=== PATIENT | male | born 1955 | race Two or more races ===

== ENCOUNTER 2017-04-23 11:47 | Outpatient (CLI) | payer OTHER | END 2017-04-23 12:58 | disposition home or self-care (01) | LOC: RAD 501 11:47 | DX: M54.5 Low back pain (principal) ==

== ENCOUNTER 2017-08-14 11:48 | Outpatient (CLI) | payer OTHER | END 2017-08-14 16:16 | disposition home or self-care (01) | LOC: RAD 501 11:48 | DX: M17.11 Unilateral primary osteoarthritis, right knee (principal); M17.12 Unilateral primary osteoarthritis, left knee ==

== ENCOUNTER → 2022-05-09 16:42 | Outpatient (CLI) | payer OTHER | END | disposition home or self-care (01) | LOC: LAB 16:42 → RAD 16:42 | PROVIDERS: ATTEND Orthopaedic Surgery | DX: M25.561 Pain in right knee (principal); M25.562 Pain in left knee ==

== ENCOUNTER 2022-07-20 16:20 | Outpatient (CLI) | payer OTHER | END 2022-07-20 16:27 | disposition home or self-care (01) | LOC: RAD 16:20 | PROVIDERS: ATTEND Orthopaedic Surgery | DX: R07.9 Chest pain, unspecified (principal) ==

== ENCOUNTER 2022-07-26 11:03 | Inpatient (IN) | payer OTHER ==
[~2022-07-26] VITALS: Ht 167.6 cm; Wt 82.6 kg
[2022-08-02] MEDS ORDERED: GABAPENTIN100 MG PO (12:57)
[2022-08-02] MEDS ORDERED: NORFLEX100MG PO (12:57)
[2022-08-02] MEDS ORDERED: OXYC1TAB9 PO (12:57)
[2022-08-02] MEDS ORDERED: LORAZEPAM0.5 MG PO (12:58)
[2022-08-02] MEDS ORDERED: XARELTO10 MG PO (13:02)
== END 2022-08-02 16:00 | DRG 470 ==
LOC: O/R 07-31 06:54 → SURH 07-31 06:54 → SURG 07-31 16:10 → SURH 07-31 19:59
PROVIDERS: ADMIT Orthopaedic Surgery; ATTEND Orthopaedic Surgery
PROC: 0SRC0JZ Replacement of Right Knee Joint with Synthetic Substitute, Open Approach (ICD-10-PCS; principal; 2022-07-31 12:15)
DX: M17.11 Unilateral primary osteoarthritis, right knee (principal); D62 Acute posthemorrhagic anemia; M85.661 Other cyst of bone, right lower leg; R26.89 Other abnormalities of gait and mobility

== ENCOUNTER 2023-11-05 05:46 | Day surgery (SDC) | payer OTHER ==
[~2023-11-05 05:46] MED LIST: GABAPENTIN100 MG PO; LORAZEPAM0.5 MG PO; NORFLEX100MG PO; OXYC1TAB9 PO; XARELTO10 MG PO
[2023-11-05] MEDS ORDERED: MIDAZOLAM HCL 2 MG/2 ML VIAL IV ONE (09:00)
[2023-11-05] MEDS ORDERED: DIPHENHYDRAMINE HCL 50 MG/ML VIAL 1ML IV ONE (09:00)
[2023-11-05] MEDS ORDERED: fentaNYL CITRATE 50 MCG/ML AMPUL IV PUSH ONE (09:00)
== END 2023-11-05 10:30 | disposition home or self-care (01) ==
LOC: AMB-ENDOS 05:46 → EDBD 14:45
PROVIDERS: ATTEND Colon & Rectal Surgery
DX: D12.3 Benign neoplasm of transverse colon (principal); D12.4 Benign neoplasm of descending colon; K63.5 Polyp of colon

== ENCOUNTER 2024-01-01 07:42 | Outpatient (CLI) | payer OTHER | END 2024-01-01 07:54 | disposition home or self-care (01) | LOC: TOM 07:42 | DX: I26.99 Other pulmonary embolism without acute cor pulmonale (principal); R06.00 Dyspnea, unspecified | CPT/HCPCS: 71275; Q9965 ==

== ENCOUNTER 2024-04-16 12:38 | Outpatient (CLI) | payer OTHER | END 2024-04-16 12:42 | disposition home or self-care (01) | LOC: RAD 12:38 | PROVIDERS: ATTEND Ophthalmology | DX: Z01.811 Encounter for preprocedural respiratory examination (principal) ==

== ENCOUNTER 2024-05-15 14:35 | Outpatient (CLI) | payer OTHER | END 2024-05-15 14:36 | disposition home or self-care (01) | LOC: RAD 14:35 | DX: M17.11 Unilateral primary osteoarthritis, right knee (principal); Z96.651 Presence of right artificial knee joint ==

== ENCOUNTER 2024-05-21 12:34 | Outpatient (CLI) | payer OTHER | END 2024-05-21 12:39 | disposition home or self-care (01) | LOC: RAD 12:34 | PROVIDERS: ATTEND Orthopaedic Surgery Sports Medicine | DX: M19.012 Primary osteoarthritis, left shoulder (principal) | CPT/HCPCS: 73218 ==

== ENCOUNTER 2024-07-09 07:10 | Outpatient (CLI) | payer OTHER | END 2024-07-09 07:11 | disposition home or self-care (01) | LOC: NUCLEAR 07:10 | DX: T84.84XA Pain due to internal orthopedic prosthetic devices, implants and grafts, initial encounter (principal) | CPT/HCPCS: 78315; A9503 ==

== ENCOUNTER 2024-10-13 13:25 | Outpatient (CLI) | payer OTHER | END 2024-10-13 13:30 | disposition home or self-care (01) | LOC: RAD 13:25 | DX: I11.9 Hypertensive heart disease without heart failure (principal); M17.11 Unilateral primary osteoarthritis, right knee ==

== ENCOUNTER 2024-11-27 14:25 | Outpatient (CLI) | payer OTHER | END 2024-11-27 14:30 | disposition home or self-care (01) | LOC: RAD 14:25 | DX: Z96.651 Presence of right artificial knee joint (principal) ==

== ENCOUNTER 2025-01-04 15:22 | Outpatient (CLI) | payer OTHER | END 2025-01-04 15:24 | disposition home or self-care (01) | LOC: RAD 15:22 | DX: Z96.652 Presence of left artificial knee joint (principal); Z96.651 Presence of right artificial knee joint ==